=== PATIENT | male | born 1985 | race Caucasian/White ===

== ENCOUNTER 2018-07-10 17:51 | Inpatient (IN) ==
[2018-07-10] MEDS ORDERED: 0.9 % Sodium Chloride 1,000 ML IVC ONE (18:23)
[2018-07-10] MEDS ORDERED: Levofloxacin 750 MG/150 ML 750 MG/150 ML BAG IVPB ONE (18:24)
--- NOTE | 2018-07-10 18:26 | Emergency Department Note ---
Disposition Clinical Impression: Pneumonia, Hypoxemia, Vomiting, Diarrhea Disposition: Admitted As Inpatient Referrals: Rupali Zamorano DO [Primary Care Provider] - Forms: ED Satisfaction Letter General Adult HPI - General Chief complaint: ED Shortness of Breath/Dyspnea Stated complaint: SOB Time Seen by Provider: 07/10/18 18:21 Source: patient Limitations: no limitations - History of Present Illness HPI Narrative: 33-year-old male sent in from urgent care with concerns for pneumonia. The patient describes a progressive illness including vomiting and diarrhea over the last several days. He has had increasing shortness of breath and a cough. The patient denies any chest pain like swelling or pain coughing up blood or syncope. He states he has had temperature up to 103. The patient denies any cardiopulmonary disease DVT PE or cancer. He has no history of asthma. The patient has had recurrent vomiting and diarrhea but describes no bloody emesis or stool. He describes an element of abdominal pain. No flank pain urinary symptoms or syncope. There is no history of rash headache convulsion or confusion no trouble moving the arms or legs independently. He is a nonsmoker. He states he usually works in a very cold environment. The patient's oxygen saturations were reportedly 84% at urgent care. Pain Scale: 10 - Related Data Home Medications Medication Instructions Recorded Confirmed Cholecalciferol (Vitamin D3) 5,000 unit PO HS 03/19/15 03/19/15 [Vitamin D] ClonazePAM [Klonopin] 0.5 mg PO BID 03/19/15 03/19/15 Divalproex (12 HR) [Depakote (12 1,500 mg PO HS 03/19/15 03/19/15 HR)] Ferrous Sulfate 325 mg PO TID 03/19/15 03/19/15 Levocetirizine Dihydrochloride 5 mg PO HS 03/19/15 03/19/15 [Xyzal] Levothyroxine [Synthroid] 75 mcg PO QAM 03/19/15 03/19/15 Quetiapine Fumarate [Seroquel] 200 mg PO HS 03/19/15 03/19/15 Ranitidine HCl [Zantac] 150 mg PO BID 03/19/15 03/19/15 Pantoprazole Sodium 07/10/18 Previous Rx's Medication Instructions Recorded L. Rhamnosus GG/Inulin [Culturelle 1 each PO BID 3 Days #6 cap.sprink 11/23/17 Capsule] Cetirizine HCl [Zyrtec] 10 mg PO DAILY #4 capsule 04/27/18 Albuterol Sulfate [Albuterol 2 puff IH Q4HR #1 hfa.aer.ad 07/10/18 Inhaler] Doxycycline Hyclate 100 mg PO BID 7 Days #14 tablet 07/10/18 GuaiFENesin/Dextromethorphan 1 each PO BID PRN 10 Days #20 tab 07/10/18 [Mucinex Dm ER 1,200-60 mg Tab] Ondansetron HCl [Zofran] 4 mg PO Q8HR PRN 5 Days #15 tab 07/10/18 Allergies Allergy/AdvReac Type Severity Reaction Status Date / Time fluphenazine [From Prolixin] Allergy Anaphylaxis Verified 04/27/18 20:03 perphenazine Allergy See Verified 07/10/18 16:26 Comments All systems ED: reviewed and negative except as stated. Past Medical History - Past Medical History Medical history: Reports: thyroid disease Surgical history: Reports: other Psychiatric history: Reports: anxiety, bipolar, depression - Social History Smoking Status: Never smoker Smokeless Tobacco Status: No Alcohol use: Reports: none Drug use: Reports: none Physical Exam - General Limitations: no limitations General appearance: alert, in no apparent distress - Head Head exam: atraumatic, normocephalic, normal inspection - Eye Eye exam: Present: normal appearance, PERRL, EOMI - ENT ENT exam: normal exam, normal oropharynx, mucous membranes moist - Neck Neck exam: Present: normal inspection, full ROM, trachea midline - Chest Chest inspection: Present: symmetric chest wall rise - Respiratory Respiratory exam: Present: prolonged expiratory phase. Absent: respiratory distress, wheezes - Cardiovascular Cardiovascular exam: Present: normal rhythm, tachycardia - Abdominal Exam Abdominal exam: Present: soft, Non-Tender, normal bowel sounds. Absent: tenderness, distention, guarding, rebound, rigidity - Extremities Exam Extremities exam: Present: normal inspection, full ROM, normal capillary refill. Absent: tenderness, pedal edema, joint swelling, calf tenderness - Expanded Lower Extremity Exam Lower leg exam: Absent: Homans' sign - Back Exam Back exam: Present: normal inspection, full ROM. Absent: tenderness, CVA tenderness (R), CVA tenderness (L), vertebral tenderness - Neurological Exam Neurological exam: Present: alert, oriented X3, CN II-XII intact. Absent: motor sensory deficit - Psychiatric Psychiatric exam: Present: normal affect, normal mood - Skin Skin exam: Present: warm, dry, intact, normal color Course Vital Signs Temperature 98.3 F 07/10/18 17:55 Pulse Rate 102 07/10/18 17:55 Respiratory Rate 18 07/10/18 17:55 Blood Pressure 123/85 07/10/18 17:55 O2 Sat by Pulse Oximetry 89 07/10/18 17:55 Temperature 98.3 F 07/10/18 18:04 Pulse Rate 91 07/10/18 19:15 Respiratory Rate 22 07/10/18 19:15 Blood Pressure 118/73 07/10/18 19:15 O2 Sat by Pulse Oximetry 92 07/10/18 19:15 Oxygen Delivery Oxygen Delivery Oximizer Medical Decision Making - MDM Narrative Medical decision making narrative: The patient's been hypoxic at 84%, he has no history of COPD or asthma. Chest x-ray demonstrates left lower lobe pneumonia. DuoNeb and Solu-Medrol and Levaquin were given. IV fluids were given. Lactic acid negative white count negative. Given the patient's significant hypoxemic and has an apparent lung infection, and possible sepsis, I thought it would be appropriate to admit the patient hospital. I discussed case with the hospitalist on-call who has accepted the patient to their care. The patient's highly agreeable and currently with in the emergency department stable resting on oxygen. Influenza testing is pending. - Lab Data Lab results reviewed: Yes I reviewed the patient's lab results. Result diagrams: 07/10/18 18:37 07/10/18 18:37 Lab Results 07/10/18 07/10/18 07/10/18 Range/Units 18:37 18:37 18:37 WBC 10.1 (4.3-11.1) K/mcL RBC 4.52 (4.19-5.50) M/mcL Hgb 12.6 L (12.9-16.9) g/dL Hct 39.0 (37.5-50.1) % MCV 86.3 (83.0-100.0) fL MCH 27.9 L (28.0-33.3) pg MCHC 32.3 (31.6-35.5) g/dL RDW 14.8 H (11.5-14.5) % Plt Count 198 (140-400) K/mcL MPV 10.2 (9.4-12.4) fL Immature Gran % 0.6 (0-4) % Seg Neutrophils % 81.5 % Lymphocytes % 10.8 % Monocytes % 6.9 % Eosinophils % 0.0 % Basophils % 0.2 % Neutrophils # 8.3 (1.6-8.9) K/mcL Lymphocytes # 1.1 (0.6-4.6) K/mcL Monocytes # 0.7 (0.0-1.3) K/mcL Eosinophils # 0.0 (0.0-0.6) K/mcL Basophils # 0.0 (0.0-0.2) K/mcL PT 13.8 H (9.4-12.1) Seconds INR 1.2 APTT 32.3 (26.0-36.0) Seconds Sodium 132 L (136-145) mEq/L Potassium 3.6 (3.5-5.1) mEq/L Chloride 94 L (98-107) mEq/L Carbon Dioxide 24 (23-29) mEq/L BUN 14 (6-20) mg/dL Creatinine 0.80 (0.70-1.30) mg/dL Est GFR ( Amer) > 60 (> 60) Est GFR (Non-Af Amer) > 60 (> 60) BUN/Creatinine Ratio 18 (6-26) Glucose 161 H (70-105) mg/dL Calculated Osmolality 278 L (280-300) Lactic Acid (0.5-2.2) mmol/L Calcium 8.8 (8.6-10.3) mg/dL Phosphorus 3.1 (2.7-4.5) mg/dL Magnesium 1.9 (1.6-2.6) mg/dL Total Bilirubin 0.4 (0.3-1.0) mg/dL Direct Bilirubin 0.1 (0.0-0.2) mg/dL Indirect Bilirubin 0.3 (0.0-1.2) mg/dL AST 21 (13-39) Units/L ALT 22 (7-52) Units/L Alkaline Phosphatase 60 (34-104) Units/L Troponin I < 0.03 (< 0.04) ng/mL Serum Total Protein 7.0 (6.4-8.9) g/dL Albumin 3.7 (3.5-5.7) g/dL Globulin 3.3 (2.4-3.5) g/dL Albumin/Globulin Ratio 1.1 (1.1-2.2) Urine Color (Yellow) Urine Clarity (Clear) Urine pH (5.0-8.0) pH Units Ur Specific [place] (1.010-1.025) Urine Protein (Neg-Trace) mg/dL Urine Glucose (UA) (Normal) mg/dL Urine Ketones (Negative) mg/dL Urine Blood (Negative) Urine Nitrite (Negative) Urine Bilirubin (Negative) Urine Urobilinogen (Normal) mg/dL Ur Leukocyte Esterase (Negative) Urine Microscopic RBC (0-3) per hpf Urine Microscopic WBC (0-3) per hpf Ur Squamous Epith Cells (None-Few) per lpf Urine Bacteria (None-Few) per hpf Hyaline Casts (None-Few) per lpf Ur Culture Indicated? (NO) Valproic Acid (50-100) mcg/mL 07/10/18 07/10/18 07/10/18 Range/Units 18:37 18:37 19:21 WBC (4.3-11.1) K/mcL RBC (4.19-5.50) M/mcL Hgb (12.9-16.9) g/dL Hct (37.5-50.1) % MCV (83.0-100.0) fL MCH (28.0-33.3) pg MCHC (31.6-35.5) g/dL RDW (11.5-14.5) % Plt Count (140-400) K/mcL MPV (9.4-12.4) fL Immature Gran % (0-4) % Seg Neutrophils % % Lymphocytes % % Monocytes % % Eosinophils % % Basophils % % Neutrophils # (1.6-8.9) K/mcL Lymphocytes # (0.6-4.6) K/mcL Monocytes # (0.0-1.3) K/mcL Eosinophils # (0.0-0.6) K/mcL Basophils # (0.0-0.2) K/mcL PT (9.4-12.1) Seconds INR APTT (26.0-36.0) Seconds Sodium (136-145) mEq/L Potassium (3.5-5.1) mEq/L Chloride (98-107) mEq/L Carbon Dioxide (23-29) mEq/L BUN (6-20) mg/dL Creatinine (0.70-1.30) mg/dL Est GFR ( Amer) (> 60) Est GFR (Non-Af Amer) (> 60) BUN/Creatinine Ratio (6-26) Glucose (70-105) mg/dL Calculated Osmolality (280-300) Lactic Acid 0.7 (0.5-2.2) mmol/L Calcium (8.6-10.3) mg/dL Phosphorus (2.7-4.5) mg/dL Magnesium (1.6-2.6) mg/dL Total Bilirubin (0.3-1.0) mg/dL Direct Bilirubin (0.0-0.2) mg/dL Indirect Bilirubin (0.0-1.2) mg/dL AST (13-39) Units/L ALT (7-52) Units/L Alkaline Phosphatase (34-104) Units/L Troponin I (< 0.04) ng/mL Serum Total Protein (6.4-8.9) g/dL Albumin (3.5-5.7) g/dL Globulin (2.4-3.5) g/dL Albumin/Globulin Ratio (1.1-2.2) Urine Color Dark Yellow (Yellow) Urine Clarity Clear (Clear) Urine pH 6.0 (5.0-8.0) pH Units Ur Specific [place] 1.019 (1.010-1.025) Urine Protein Trace (Neg-Trace) mg/dL Urine Glucose (UA) Normal (Normal) mg/dL Urine Ketones Trace H (Negative) mg/dL Urine Blood Negative (Negative) Urine Nitrite Negative (Negative) Urine Bilirubin Small H (Negative) Urine Urobilinogen Normal (Normal) mg/dL Ur Leukocyte Esterase Negative (Negative) Urine Microscopic RBC 3-5 H (0-3) per hpf Urine Microscopic WBC 5-15 H (0-3) per hpf Ur Squamous Epith Cells Many H (None-Few) per lpf Urine Bacteria None Seen (None-Few) per hpf Hyaline Casts None Seen (None-Few) per lpf Ur Culture Indicated? NO (NO) Valproic Acid 44 L (50-100) mcg/mL - Radiology Data Radiology results reviewed: Yes I reviewed the patient's radiology results.
[2018-07-10] MEDS ORDERED: methylPREDNISolone 125 MG/2 ML VIAL IVP ONE (18:47)
[2018-07-10] MEDS ORDERED: Ipratropium/Albuterol Neb 3 ML IH ONE (18:47)
[2018-07-10 18:50] LABS: Basophils % 0.2 %; Hemoglobin 12.6 g/dL (12.9-16.9); Immature Granulocytes % 0.6 % (0-4); Lymphocytes # 1.1 K/mcL (0.6-4.6); Lymphocytes % 10.8 %; Mean Corpuscular HGB Conc 32.3 g/dL (31.6-35.5); Mean Corpuscular Hemoglobin 27.9 pg (28.0-33.3); Mean Corpuscular Volume 86.3 fL (83.0-100.0); Mean Platelet Volume 10.2 fL (9.4-12.4); Monocytes # 0.7 K/mcL (0.0-1.3); Monocytes % 6.9 %; Neutrophils # 8.3 K/mcL (1.6-8.9); Platelet Count 198 K/mcL (140-400); Red Blood Count 4.52 M/mcL (4.19-5.50); Red Cell Distribution Width 14.8 % (11.5-14.5); Segmented Neutrophils % 81.5 %
[2018-07-10 18:57] LABS: INR 1.2; Prothrombin Time 13.8 Seconds (9.4-12.1)
[2018-07-10 18:59] LABS: Activated Partial Thrombo Time 32.3 Seconds (26.0-36.0)
[2018-07-10 19:11] LABS: Troponin I < 0.03 ng/mL (< 0.04)
[2018-07-10 19:22] LABS: Alanine Aminotransferase 22 Units/L (7-52); Albumin 3.7 g/dL (3.5-5.7); Albumin/Globulin Ratio 1.1 (1.1-2.2); Alkaline Phosphatase 60 Units/L (34-104); Aspartate Amino Transferase 21 Units/L (13-39); BUN/Creatinine Ratio 18 (6-26); Bilirubin,Direct 0.1 mg/dL (0.0-0.2); Bilirubin,Indirect 0.3 mg/dL (0.0-1.2); Bilirubin,Total 0.4 mg/dL (0.3-1.0); Blood Urea Nitrogen 14 mg/dL (6-20); Calcium 8.8 mg/dL (8.6-10.3); Carbon Dioxide 24 mEq/L (23-29); Chloride 94 mEq/L (98-107); Globulin 3.3 g/dL (2.4-3.5); Glucose 161 mg/dL (70-105); Magnesium 1.9 mg/dL (1.6-2.6); Osmolality,Calculated 278 (280-300); Phosphorous 3.1 mg/dL (2.7-4.5); Potassium 3.6 mEq/L (3.5-5.1); Sodium 132 mEq/L (136-145); eGFR For Non-African Americans > 60 (> 60)
[2018-07-10 19:29] LABS: Bilirubin,Urine Small (Negative); Blood,Urine Negative (Negative); Clarity,Urine Clear (Clear); Color,Urine Dark Yellow (Yellow); Glucose,Urine (UA) Normal (Normal); Ketones,Urine Trace mg/dL (Negative); Leukocyte Esterase,Urine Negative (Negative); Nitrite,Urine Negative (Negative); Protein,Urine Trace mg/dL (Neg-Trace); Specific Gravity,Urine 1.019 (1.010-1.025); Urobilinogen,Urine Normal (Normal)
[2018-07-10 19:32] LABS: Bacteria,Urine None Seen per hpf (None-Few); Hyaline Casts,Urine None Seen per lpf (None-Few); Squamous Epithelial Cell,Urine Many per lpf (None-Few)
[2018-07-11] MEDS ORDERED: Ondansetron 4 MG/2 ML VIAL IVP PRN (01:59)
[2018-07-11] MEDS ORDERED: Naloxone 0.4 MG/ML INJ IVP PRN (01:59)
[2018-07-11] MEDS ORDERED: Ipratropium/Albuterol Neb 3 ML IH PRN (02:14)
[2018-07-11] MEDS: clonazePAM 0.5 MG TABLET PO SCH ×3 (02:34→21:50)
[2018-07-11] MEDS: Divalproex (24 HR) 500 MG TABLET PO SCH ×2 (02:34→21:51)
[2018-07-11] MEDS: GuaiFENesin/Dextromethorphan TABLET PO SCH ×3 (02:34→21:50)
[2018-07-11 05:49] LABS: Hematocrit 37.8 % (37.5-50.1); Mean Corpuscular HGB Conc 31.7 g/dL (31.6-35.5); Mean Corpuscular Hemoglobin 27.5 pg (28.0-33.3); Mean Corpuscular Volume 86.7 fL (83.0-100.0); Mean Platelet Volume 10.8 fL (9.4-12.4); Platelet Count 196 K/mcL (140-400); Red Blood Count 4.36 M/mcL (4.19-5.50); Red Cell Distribution Width 14.8 % (11.5-14.5)
[2018-07-11 06:02] LABS: BUN/Creatinine Ratio 25 (6-26); Blood Urea Nitrogen 16 mg/dL (6-20); Calcium 8.6 mg/dL (8.6-10.3); Carbon Dioxide 26 mEq/L (23-29); Chloride 95 mEq/L (98-107); Glucose 260 mg/dL (70-105); Osmolality,Calculated 286 (280-300); Potassium 3.7 mEq/L (3.5-5.1); Sodium 133 mEq/L (136-145); eGFR For Non-African Americans > 60 (> 60)
--- NOTE | 2018-07-11 06:33 | Internal Med History&Physical ---
Date of Encounter: 07/11/18 Time of Encounter: 01:35 Internal Medicine - H&P: HPI Chief complaint: Pneumonia Admitted From: Emergency Dept Plans for Post Hospital Care: Home History of present illness: Mr. Duncan is a 33 year old male Patient presented to the emergency room with a two-week history of nausea, vomiting, diarrhea and cough. He is also had increasing shortness of breath as well. He says that over the last 2 weeks been getting worse but that improved about a week ago. However about 3 days ago while he was at work he had increased wheezing and shortness of breath and it felt like his lungs were on f katherine. He did not call for medical assistance at that time and instead he went home and scheduled an appointment with his primary care provider. Prior to his appointment on Tuesday however he had an episode of diarrhea prompting him to go to the urgent care for evaluation. A chest x-ray performed at the urgent care revealed a pneumonia and he was sent to the hospital for further management. In the emergency room patient's CBC showed a white count of 10.1. BMP was within normal limits. Chest x-ray showed left lower lobe pneumonia. Urinalysis was negative for infection. Patient's initial vitals did however show hypoxia with a room air saturation of 89 correcting to 92 with 3 L of oxygen. Patient does not use oxygen at home. He had no measurable fever in the emergency room but had tachycardia and increased respiratory rate. Lactic acid level was 0.7. Blood cultures were drawn and patient was started on Levaquin. He was admitted to the hospital for further management. Upon my evaluation, patient is resting comfortably in the hospital bed. His mother is at bedside. He states that he has not felt well for the last 2 weeks, and has noticed increased wheezing with his breathing the last few days. He was given breathing treatments in the emergency room and he states that these did help his symptoms. He does not smoke. 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 He denies sick contacts. Though he has had some nausea and vomiting the last few days he has not had any since coming to the emergency room. He denies chest pain and abdominal pain. He is also not had any diarrhea since Tuesday. Past Med Surg Social Fam HX - Past Medical History Medical history: diabetes, thyroid disease Additional medical history: pre-diabetic Psychiatric history: anxiety, bipolar, depression - Past Surgical History Surgical History: other Additional surgical history: TONSILLECTOMY - Social History Smoking Status: Never smoker Smokeless Tobacco Status: No Alcohol use: none Drug use: none - Family History Father Living Status: Cause of : PNUEMONIA Hx Family Cancer: Yes (KIDNEY) Mother Living Status: Still Living Hx Family Cardiac Disorders: Yes (HTN HLD) Internal Medicine - H&P: Meds Cholecalciferol (Vitamin D3) [Vitamin D] 2,000 unit PO DAILY 07/10/18 [History] Cyanocobalamin (Vitamin B-12) [Vitamin B12] 1,000 mcg PO Q2W 07/10/18 [History] Divalproex (24 HR) [Depakote ER (24 HR)] 1,500 mg PO HS 07/10/18 [History] Ferrous Sulfate [Iron] 325 mg PO BID 07/10/18 [History] GuaiFENesin/Dextromethorphan [Mucinex DM] 2 tab PO BID 07/10/18 [History] Levothyroxine Sodium 100 mcg PO QAM 07/10/18 [History] Loperamide [Imodium] 2 mg PO BID PRN 07/10/18 [History] Pantoprazole Sodium 40 mg PO DAILY 07/10/18 [History] clonazePAM [Clonazepam] 0.5 mg PO BID 07/10/18 [History] Allergy/AdvReac Type Severity Reaction Status Date / Time fluphenazine [From Prolixin] Allergy Anaphylaxis Verified 04/27/18 20:03 perphenazine Allergy See Verified 07/10/18 16:26 Comments All Systems PM: A 10-system review of systems was performed and is negative for pertinent findings except as documented above in the HPI. - Constitutional Vitals: Temp Pulse Resp BP Pulse Ox 98.8 F 79 16 97/61 91 07/11/18 02:51 07/11/18 02:51 07/11/18 02:51 07/11/18 02:51 07/11/18 02:51 General appearance: Present: cooperative, A&O X 3, pleasant, no acute distress, answers questions appropriately Exam: - - Head Head exam: Present: normal inspection - Eye Eye exam: Present: EOMI, normal appearance - Neck Neck exam general surgery: Absent: tenderness - Respiratory Respiratory exam: Present: rales, wheezes. Absent: accessory muscle use, chest wall tenderness, decreased breath sounds, CTAB, respiratory distress, rhonchi - Cardiovascular Cardiovascular exam: Present: RRR. Absent: diastolic murmur, systolic murmur - GI/Abdominal GI/Abdominal exam: Present: normal bowel sounds, soft. Absent: tenderness - Extremities Exam Extremities exam: Present: warm, radial pulses palpable and symmetrical. Absent: calf tenderness, pedal edema, tenderness - Neurological Exam Neurological exam: Present: no focal deficits, strengths equal and symetr throughout. Absent: motor sensory deficit, facial droop, speech deficit - Skin Skin exam: Present: dry, normal color, warm Internal Med - H&P Results - Labs CBC & Chem 7: 07/11/18 05:07 07/11/18 05:07 Labs: Short CBC 07/10/18 07/11/18 Range/Units 18:37 05:07 WBC 10.1 8.3 (4.3-11.1) K/mcL Hgb 12.6 L 12.0 L (12.9-16.9) g/dL Hct 39.0 37.8 (37.5-50.1) % Plt Count 198 196 (140-400) K/mcL Neutrophils # 8.3 (1.6-8.9) K/mcL BMP 07/10/18 07/11/18 18:37 05:07 Sodium 132 L 133 L Potassium 3.6 3.7 Chloride 94 L 95 L Carbon Dioxide 24 26 BUN 14 16 Creatinine 0.80 0.64 L Glucose 161 H 260 H Calcium 8.8 8.6 Cardiac Enzymes 07/10/18 Range/Units 18:37 Troponin I < 0.03 (< 0.04) ng/mL Liver Function 07/10/18 Range/Units 18:37 Total Bilirubin 0.4 (0.3-1.0) mg/dL Direct Bilirubin 0.1 (0.0-0.2) mg/dL AST 21 (13-39) Units/L ALT 22 (7-52) Units/L Alkaline Phosphatase 60 (34-104) Units/L Albumin 3.7 (3.5-5.7) g/dL Urine 07/10/18 Range/Units 19:21 Urine Color Dark Yellow (Yellow) Urine Clarity Clear (Clear) Urine pH 6.0 (5.0-8.0) pH Units Ur Specific [place] 1.019 (1.010-1.025) Urine Protein Trace (Neg-Trace) mg/dL Urine Glucose (UA) Normal (Normal) mg/dL - Assessment and plan (1) Pneumonia Current Visit: Yes Status: Acute Assessment and plan: As evidenced by patient's chest x-ray which revealed left lower lobe pneumonia. He has had symptoms of shortness of breath and cough for about 2 weeks. Blood cultures are drawn emergency room, and he was started on Levaquin. Continue antibiotics Follow-up blood cultures when available Ordered respiratory panel, follow-up results Qualifiers: Pneumonia type: due to unspecified organism Laterality: left Lung location: lower lobe of lung Qualified Code(s): J18.1 - Lobar pneumonia, unspecified organism (2) Hypoxemia Current Visit: Yes Status: Acute Assessment and plan: Improved on oxygen, patient now able to sustain saturations greater than 90% on room air. Likely secondary to pneumonia Continue oxygen supplementation as needed. Continue breathing treatments (3) Nausea vomiting and diarrhea Current Visit: No Status: Acute Assessment and plan: likely secondary to pneumonia, no episodes since arrival. Supportive care (4) DVT prophylaxis Current Visit: No Status: Acute Assessment and plan: SCDs - Time Spent With Patient Total time spent is greater than 50% in coordination of care (as documented) at patient's floor/unit and/or counseling patient: Greater than 35 minutes
--- NOTE | 2018-07-11 09:44 | Event Note ---
Date of Encounter: 07/11/18 Time of Encounter: 09:44 Patient was seen by hospitalist services earlier this am- Patient was examined at bedside- currently has expiratory wheezes and requires high flow oxygen to maintain O2 sats> 92%- Normally he does not wear oxygen- he does admit to sick contacts and did not receive flu vaccine- we will check rep panel and add steroid. We will check blood glucose and SSI. I discussed treatemtn plan with patient and mother who is at bedside. Due to acute resp failure with hypoxia requiring oxygen support patient requires close medically monitoring and will be changed to inpatient status
[2018-07-11 10:56] LABS: Adenovirus Not Detected (Not Detect); Bordetella Pertussis Not Detected (Not Detect); Chlamydophila pneumoniae Not Detected (Not Detect); Coronavirus 229E Not Detected (Not Detect); Coronavirus HKU1 Not Detected (Not Detect); Coronavirus NL63 Not Detected (Not Detect); Coronavirus OC43 Not Detected (Not Detect); Human Metapneumovirus Not Detected (Not Detect); Human Rhinovirus/Enterovirus Not Detected (Not Detect); Influenza A Subtype 2009 H1 Not Detected (Not Detect); Influenza A Untypeable Not Detected (Not Detect); Influenza B Not Detected (Not Detect); Mycoplasma pneumoniae Not Detected (Not Detect); Parainfluenza Virus 1 Not Detected (Not Detect); Parainfluenza Virus 2 Not Detected (Not Detect); Parainfluenza Virus 3 Not Detected (Not Detect); Parainfluenza Virus 4 Not Detected (Not Detect); Respiratory Syncytial Virus Not Detected (Not Detect)
[2018-07-11] MEDS: Ipratropium/Albuterol Neb 3 ML IH SCH ×4 (11:01→23:21)
[2018-07-11] MEDS ORDERED: D5% in Water 1,000 ML IVC PRN (12:27)
[2018-07-11] MEDS ORDERED: *HR* Dextrose 50 % in Water (Syg) 50 ML SYRINGE IVP PRN (12:27)
[2018-07-11] MEDS ORDERED: Dextrose Gel 15 GM/37.5 ML TUBE PO PRN ×2 (12:27)
[2018-07-11] MEDS: predniSONE 20 MG TABLET PO SCH (12:55)
[2018-07-11] MEDS: 0.9 % Sodium Chloride 1,000 ML IVC SCH (13:00)
[2018-07-11] MEDS: Insulin LISPRO 300 UNITS/3 ML VIAL SQ SCH ×2 (17:12→21:57)
--- NOTE | 2018-07-11 17:50 | Electrocardiograph Report ---
[address] [place], [place] [address] Test Date: 2018-07-10 Pat Name: Stephan Duncan Department: [id number] Room: 3B Gender: M Utilization Reviewer: : 1985 Requested By: Shawn Jo Order Number: [id number] Reading MD: Darling Shipley Measurements Intervals Harvey Rate: 92 P: 60 ME: 153 QRS: 59 QRSD: 96 T: 52 QT: 369 QTc: 457 Interpretive Statements Sinus rhythm Electronically Signed On 07-11-2018 17:48:26 EST by Darling Shipley
[2018-07-11] MEDS: Levofloxacin 750 MG/150 ML 750 MG/150 ML BAG IVPB SCH (18:36)
[2018-07-12] MEDS: Ipratropium/Albuterol Neb 3 ML IH SCH ×6 (04:25→23:08)
[2018-07-12 05:13] LABS: Basophils % 0.2 %; Hematocrit 36.1 % (37.5-50.1); Hemoglobin 11.6 g/dL (12.9-16.9); Immature Granulocytes % 0.6 % (0-4); Lymphocytes # 2.5 K/mcL (0.6-4.6); Lymphocytes % 29.2 %; Mean Corpuscular HGB Conc 32.1 g/dL (31.6-35.5); Mean Platelet Volume 10.6 fL (9.4-12.4); Monocytes # 0.6 K/mcL (0.0-1.3); Monocytes % 6.7 %; Neutrophils # 5.3 K/mcL (1.6-8.9); Platelet Count 202 K/mcL (140-400); Red Blood Count 4.15 M/mcL (4.19-5.50); Red Cell Distribution Width 14.9 % (11.5-14.5); Segmented Neutrophils % 63.3 %
[2018-07-12 05:31] LABS: BUN/Creatinine Ratio 25 (6-26); Blood Urea Nitrogen 16 mg/dL (6-20); Calcium 8.5 mg/dL (8.6-10.3); Carbon Dioxide 31 mEq/L (23-29); Chloride 99 mEq/L (98-107); Glucose 140 mg/dL (70-105); Osmolality,Calculated 289 (280-300); Potassium 3.7 mEq/L (3.5-5.1); Sodium 138 mEq/L (136-145); eGFR For Non-African Americans > 60 (> 60)
[2018-07-12] MEDS: 0.9 % Sodium Chloride 1,000 ML IVC SCH (06:12)
[2018-07-12] MEDS: Insulin LISPRO 300 UNITS/3 ML VIAL SQ SCH ×4 (09:13→20:11)
[2018-07-12] MEDS: GuaiFENesin/Dextromethorphan TABLET PO SCH ×2 (09:21→20:11)
[2018-07-12] MEDS: clonazePAM 0.5 MG TABLET PO SCH ×2 (09:21→20:11)
[2018-07-12] MEDS: predniSONE 20 MG TABLET PO SCH (09:21)
--- NOTE | 2018-07-12 10:18 | Internal Med Progress Note ---
Hospitalist Progress Note - Encounter Date of Encounter: 07/12/18 Time of Encounter: 10:13 - Subjective Interval History: Yan seen and examined at bedside currently does not appear to be in any resp distress- encouraged patient to ambulate and to use IS - Exam Vitals: Temp Pulse Resp BP Pulse Ox 97.3 F L 67 16 92/65 93 07/12/18 07:00 07/12/18 07:00 07/12/18 07:00 07/12/18 07:06 07/12/18 07:00 Exam: General appearance: Present: A&O X 3 Exam: PHYSICAL EXAMINATION: GENERAL: NAD, AO 3 HEENT: Head is normocephalic and atraumatic. EOMI, PERRLA NECK: Supple. No carotid bruits. No lymphadenopathy or thyromegaly. Stoma LUNGS: Clear to auscultation B/L AP and L. HEART: Regular rate and regular rhythm, S1, S2 without murmur. ABDOMEN: Soft and nondistended. Positive bowel sounds. No hepatosplenomegaly was noted. Epigastric tenderness EXTREMITIES: Without any cyanosis, clubbing, rash, lesions or edema. NEUROLOGIC: Cranial nerves II through XII are grossly intact. PSYCHIATRIC: Appropriate affect, denies SI/HI, without agitation or anxiety SKIN: No ulceration or induration present. - Assessment and Plan (1) Acute respiratory failure with hypoxia Current Visit: Yes Status: Acute Assessment and Plan: secondary to pneumonia- cont with O2 titrate to maintains sats >92% encourage ambulation (2) Pneumonia Current Visit: Yes Status: Acute Assessment and Plan: 1 CXR - left lower lobe pneumonia-symptoms of shortness of breath and cough for about 2 weeks. Blood cultures neg to date , cont levaquin Influenza neg sputum culture pending cont with O2 tirate to maintain spo2 > 92% steroid burst for wheezing IS bronchodilators as needed (3) DVT prophylaxis Current Visit: No Status: Acute Assessment and Plan: Heparin subcutaneous (4) Morbid obesity with BMI of 45.0-49.9, adult Current Visit: No Status: Chronic Assessment and Plan: encourage lifestyle changes (5) JOHANNA (obstructive sleep apnea) Current Visit: No Status: Chronic Assessment and Plan: 1 patient states that he has hx of ODSA however does not use CPAP- offered CPAP however declined (6) Diabetes mellitus Current Visit: Yes Status: Acute Assessment and Plan: 1 Not on insulin - diet controlled - will place on Accucheck AC/HS with SSI dt steroid use diabetic diet - Time Spent with Patient Total time spent is greater than 50% in coordination of care (as documented) at patient's floor/unit and/or counseling patient: Internal Medicine: Result - Labs CBC & Chem 7: 07/12/18 04:43 07/12/18 04:43 Labs: Short CBC 07/12/18 Range/Units 04:43 WBC 8.5 (4.3-11.1) K/mcL Hgb 11.6 L (12.9-16.9) g/dL Hct 36.1 L (37.5-50.1) % Plt Count 202 (140-400) K/mcL Neutrophils # 5.3 (1.6-8.9) K/mcL BMP 07/12/18 04:43 Sodium 138 Potassium 3.7 Chloride 99 Carbon Dioxide 31 H BUN 16 Creatinine 0.63 L Glucose 140 H Calcium 8.5 L - ABG Interpretation ABG results: PT/INR, D-dimer PT 13.8 Seconds (9.4-12.1) H 07/10/18 18:37 Consult Discharge Plan - Plan Referrals: Poornima Lagos, PARKING MANAGER [Partnered Physician] - 07/20/18 2:00 pm (2) Pneumonia Qualifiers: Pneumonia type: due to unspecified organism Laterality: left Lung location: lower lobe of lung Qualified Code(s): J18.1 - Lobar pneumonia, unspecified organism (6) Diabetes mellitus Qualifiers: Diabetes mellitus type: type 2 Diabetes mellitus manager intermediate insulin use: without skilled nursing use Diabetes mellitus complication status: without complication Qualified Code(s): E11.9 - Type 2 diabetes mellitus without complications
[2018-07-12] MEDS: Levofloxacin 750 MG/150 ML 750 MG/150 ML BAG IVPB SCH (20:10)
[2018-07-12] MEDS: Divalproex (24 HR) 500 MG TABLET PO SCH (20:11)
[2018-07-12] MEDS: *HR* Heparin 5,000 UNIT/ML VIAL SQ SCH (20:11)
[2018-07-12] MEDS: Famotidine 20 MG TABLET PO SCH (20:11)
[2018-07-13] MEDS: Ipratropium/Albuterol Neb 3 ML IH SCH ×6 (03:35→23:59)
[2018-07-13 04:11] LABS: Basophils % 0.4 %; Hematocrit 38.1 % (37.5-50.1); Hemoglobin 12.4 g/dL (12.9-16.9); Lymphocytes # 3.4 K/mcL (0.6-4.6); Lymphocytes % 45.9 %; Mean Corpuscular HGB Conc 32.5 g/dL (31.6-35.5); Mean Corpuscular Hemoglobin 28.1 pg (28.0-33.3); Mean Corpuscular Volume 86.4 fL (83.0-100.0); Mean Platelet Volume 10.7 fL (9.4-12.4); Monocytes # 0.4 K/mcL (0.0-1.3); Monocytes % 5.6 %; Neutrophils # 3.5 K/mcL (1.6-8.9); Platelet Count 209 K/mcL (140-400); Red Blood Count 4.41 M/mcL (4.19-5.50); Red Cell Distribution Width 15.2 % (11.5-14.5); Segmented Neutrophils % 47.1 %
[2018-07-13 04:28] LABS: BUN/Creatinine Ratio 21 (6-26); Blood Urea Nitrogen 14 mg/dL (6-20); Calcium 8.7 mg/dL (8.6-10.3); Carbon Dioxide 32 mEq/L (23-29); Chloride 99 mEq/L (98-107); Glucose 99 mg/dL (70-105); Osmolality,Calculated 291 (280-300); Potassium 3.6 mEq/L (3.5-5.1); Sodium 140 mEq/L (136-145); eGFR For Non-African Americans > 60 (> 60)
[2018-07-13] MEDS: *HR* Heparin 5,000 UNIT/ML VIAL SQ SCH ×2 (06:10→17:43)
[2018-07-13] MEDS: Insulin LISPRO 300 UNITS/3 ML VIAL SQ SCH ×4 (08:37→21:26)
[2018-07-13] MEDS: predniSONE 20 MG TABLET PO SCH (08:39)
[2018-07-13] MEDS: clonazePAM 0.5 MG TABLET PO SCH ×2 (08:39→20:03)
[2018-07-13] MEDS: Famotidine 20 MG TABLET PO SCH ×2 (08:39→20:03)
[2018-07-13] MEDS: GuaiFENesin/Dextromethorphan TABLET PO SCH ×2 (08:39→20:02)
--- NOTE | 2018-07-13 10:31 | Internal Med Progress Note ---
Hospitalist Progress Note - Encounter Date of Encounter: 07/14/18 Time of Encounter: 10:31 - Subjective Interval History: Patseb seen and examined at bedside currently does not appear to be in any resp distress- encouraged patient to ambulate and to use IS - Exam Vitals: Temp Pulse Resp BP Pulse Ox 98.7 F 70 16 107/72 94 07/13/18 07:09 07/13/18 07:09 07/13/18 07:37 07/13/18 07:09 07/13/18 08:44 Exam: General appearance: Present: A&O X 3 Exam: PHYSICAL EXAMINATION: GENERAL: NAD, AO 3 HEENT: Head is normocephalic and atraumatic. EOMI, PERRLA NECK: Supple. No carotid bruits. No lymphadenopathy or thyromegaly. Stoma LUNGS: Clear to auscultation B/L AP and L. HEART: Regular rate and regular rhythm, S1, S2 without murmur. ABDOMEN: Soft and nondistended. Positive bowel sounds. No hepatosplenomegaly was noted. Epigastric tenderness EXTREMITIES: Without any cyanosis, clubbing, rash, lesions or edema. NEUROLOGIC: Cranial nerves II through XII are grossly intact. PSYCHIATRIC: Appropriate affect, denies SI/HI, without agitation or anxiety SKIN: No ulceration or induration present. - Assessment and Plan (1) Acute respiratory failure with hypoxia Current Visit: Yes Status: Acute Assessment and Plan: secondary to pneumonia- cont with O2 titrate to maintains sats >92% encourage ambulation 07/13 patient resp status improved -cont to titrate oxygen to room air encourage ambulation (2) Pneumonia Current Visit: Yes Status: Acute Assessment and Plan: 1 CXR - left lower lobe pneumonia-symptoms of shortness of breath and cough for about 2 weeks. Blood cultures neg to date , cont levaquin Influenza neg sputum culture pending cont with O2 tirate to maintain spo2 > 92% steroid burst for wheezing IS bronchodilators as needed 07/13 CXR - left lower lobe pneumonia-symptoms of shortness of breath and cough for about 2 weeks. Blood cultures neg to date , cont levaquin- switch to oral Influenza neg sputum culture neg cont with O2 tirate to maintain spo2 > 92% steroid burst for wheezing IS bronchodilators as needed (3) DVT prophylaxis Current Visit: No Status: Acute Assessment and Plan: Heparin subcutaneous (4) Morbid obesity with BMI of 45.0-49.9, adult Current Visit: No Status: Chronic Assessment and Plan: encourage lifestyle changes (5) JOHANNA (obstructive sleep apnea) Current Visit: No Status: Chronic Assessment and Plan: 1 patient states that he has hx of JOHANNA however does not use CPAP- offered CPAP however declined (6) Diabetes mellitus Current Visit: Yes Status: Acute Assessment and Plan: 1 Not on insulin - diet controlled - will place on Accucheck AC/HS with SSI dt steroid use diabetic diet 07/13 glucose stable -cont with diabetic diet - Time Spent with Patient Total time spent is greater than 50% in coordination of care (as documented) at patient's floor/unit and/or counseling patient: Internal Medicine: Result - Labs CBC & Chem 7: 07/14/18 03:45 07/14/18 03:45 Labs: Short CBC 07/13/18 Range/Units 03:46 WBC 7.4 (4.3-11.1) K/mcL Hgb 12.4 L (12.9-16.9) g/dL Hct 38.1 (37.5-50.1) % Plt Count 209 (140-400) K/mcL Neutrophils # 3.5 (1.6-8.9) K/mcL BMP 07/13/18 03:46 Sodium 140 Potassium 3.6 Chloride 99 Carbon Dioxide 32 H BUN 14 Creatinine 0.68 L Glucose 99 Calcium 8.7 - ABG Interpretation ABG results: PT/INR, D-dimer PT 13.8 Seconds (9.4-12.1) H 07/10/18 18:37 Consult Discharge Plan - Plan Referrals: Poornima Lagos BANDER OPERATOR [Partnered Physician] - 07/20/18 2:00 pm (2) Pneumonia Qualifiers: Pneumonia type: due to unspecified organism Laterality: left Lung location: lower lobe of lung Qualified Code(s): J18.1 - Lobar pneumonia, unspecified organism (6) Diabetes mellitus Qualifiers: Diabetes mellitus type: type 2 Diabetes mellitus skilled nursing insulin use: without resident caregiver use Diabetes mellitus complication status: without complication Qualified Code(s): E11.9 - Type 2 diabetes mellitus without complications
[2018-07-13] MEDS: levoFLOXacin 750 MG TABLET PO SCH (11:00)
[2018-07-13] MEDS: Divalproex (24 HR) 500 MG TABLET PO SCH (20:03)
[2018-07-14 04:30] LABS: BUN/Creatinine Ratio 24 (6-26); Blood Urea Nitrogen 18 mg/dL (6-20); Calcium 8.7 mg/dL (8.6-10.3); Carbon Dioxide 33 mEq/L (23-29); Chloride 97 mEq/L (98-107); Glucose 116 mg/dL (70-105); Osmolality,Calculated 291 (280-300); Potassium 3.6 mEq/L (3.5-5.1); Sodium 139 mEq/L (136-145); eGFR For Non-African Americans > 60 (> 60)
[2018-07-14] MEDS: Ipratropium/Albuterol Neb 3 ML IH SCH ×3 (04:39→11:29)
[2018-07-14] MEDS: *HR* Heparin 5,000 UNIT/ML VIAL SQ SCH (05:28)
[2018-07-14 05:59] LABS: Basophils % 0.3 %; Eosinophils % 0.1 %; Hematocrit 38.8 % (37.5-50.1); Hemoglobin 12.3 g/dL (12.9-16.9); Immature Granulocytes % 2.1 % (0-4); Lymphocytes # 4.1 K/mcL (0.6-4.6); Lymphocytes % 44.8 %; Mean Corpuscular HGB Conc 31.7 g/dL (31.6-35.5); Mean Corpuscular Hemoglobin 27.6 pg (28.0-33.3); Mean Corpuscular Volume 87.2 fL (83.0-100.0); Mean Platelet Volume 11.3 fL (9.4-12.4); Monocytes # 0.5 K/mcL (0.0-1.3); Neutrophils # 4.4 K/mcL (1.6-8.9); Platelet Count 225 K/mcL (140-400); Red Blood Count 4.45 M/mcL (4.19-5.50); Red Cell Distribution Width 15.3 % (11.5-14.5); Segmented Neutrophils % 47.7 %
[2018-07-14] MEDS: Insulin LISPRO 300 UNITS/3 ML VIAL SQ SCH (08:14)
[2018-07-14] MEDS: clonazePAM 0.5 MG TABLET PO SCH (08:16)
[2018-07-14 08:17] VITALS: BP 102/68
[2018-07-14] MEDS: levoFLOXacin 750 MG TABLET PO SCH (10:04)
[2018-07-14] MEDS: GuaiFENesin/Dextromethorphan TABLET PO SCH (10:04)
[2018-07-14] MEDS: predniSONE 20 MG TABLET PO SCH (10:04)
[2018-07-14] MEDS: Famotidine 20 MG TABLET PO SCH (10:04)
--- NOTE | 2018-07-14 12:55 | Discharge Summary ---
- NOTES TO OUTPATIENT PROVIDER Notes to Outpatient Provider: Patient presented with cough and fever dx with pneumonia received steroid burst- on levaquin- will complete 10 day course - albuterol breathing tx - encourage Incentive spirometry - Orders not resulted at time of discharge: Pending orders 07/10/18 18:37 Culture,Blood [BC] Stat Date of Encounter: 07/14/18 Time of Encounter: 12:50 - Discharge Diagnosis (1) Acute respiratory failure with hypoxia Priority: Primary Status: Acute (2) Pneumonia Priority: Secondary Status: Acute Qualifiers: Pneumonia type: due to unspecified organism Laterality: left Lung location: lower lobe of lung Qualified Code(s): J18.1 - Lobar pneumonia, unspecified organism (3) Morbid obesity with BMI of 45.0-49.9, adult Priority: Secondary Status: Chronic (4) JOHANNA (obstructive sleep apnea) Priority: Secondary Status: Chronic (5) Diabetes mellitus Priority: Secondary Status: Acute Qualifiers: Diabetes mellitus type: type 2 Diabetes mellitus terminal worker insulin use: without prison use Diabetes mellitus complication status: without complication Qualified Code(s): E11.9 - Type 2 diabetes mellitus without complications Hospital course: Mr. Duncan is a 33 year old male past medical hx of JOHANNA diabetes thyroid disease bipolar Presented to [facility] ED with 2 week hx of NVD SOB and cough A chest x-ray performed at the urgent care revealed a pneumonia and he was sent to the hospital for further management.Chest x-ray showed left lower lobe pneumonia. Urinalysis was negative for infection. Patient's initial vitals did however show hypoxia with a room air saturation of 89 correcting to 92 with 3 L of oxygen. Patient does not use home oxygen but hx of JOHANAN noncompliant with sleep apnea machine Blood culure were drawn and were negative Sputum culture negative He was given Levaquin steroid burst oxygen and bronchial dilators His resp state slowly improved- Patient had to be greatly encouraged to use IS and to ambulate- he was eventually weaned off oxygen - transitioned to oral ATB which he will cont for 10 day course - 6 min walk test was completed and the patient did not qualify for home O2 - Advised the patient to follow up with PCP He was given a prescription of Levaquin as well as for Duo nebs - He is hemodynamically stable and ready for discharge Discharge discussed with: patient - Time Spent with Patient Total time spent providing and/or coordinating discharge services: - Discharge Medications Prescriptions: Ipratropium/Albuterol Neb [Duoneb] 3 ml IH [id number] #30 inhsol levoFLOXacin [Levaquin] 750 mg PO DAILY #7 tablet Home Medications: Cholecalciferol (Vitamin D3) [Vitamin D3] 2,000 unit PO DAILY 07/10/18 [History] Cyanocobalamin (Vitamin B-12) [Vitamin B12] 1,000 mcg PO Q2W 07/10/18 [History] Divalproex (24 HR) [Depakote ER (24 HR)] 1,500 mg PO HS 07/10/18 [History] Ferrous Sulfate [Iron] 325 mg PO BID 07/10/18 [History] GuaiFENesin/Dextromethorphan [Mucinex Dm] 2 tab PO BID 07/10/18 [History] Levothyroxine Sodium 100 mcg PO QAM 07/10/18 [History] Loperamide [Imodium] 2 mg PO BID PRN 07/10/18 [History] Pantoprazole Sodium 40 mg PO DAILY 07/10/18 [History] clonazePAM [Clonazepam] 0.5 mg PO BID 07/10/18 [History] Ipratropium/Albuterol Neb [Duoneb] 3 ml IH [id number] #30 inhsol 07/14/18 [Rx] levoFLOXacin [Levaquin] 750 mg PO DAILY #7 tablet 07/14/18 [Rx] Allergies/Adverse Reactions: Allergy/AdvReac Type Severity Reaction Status Date / Time fluphenazine [From Prolixin] Allergy Anaphylaxis Verified 04/27/18 20:03 perphenazine Allergy See Verified 07/10/18 16:26 Comments Date of admission: 07/11/18 12:17 Primary care physician: Rupali Zamorano DO Discharging clinician: Yun Bear Anticipated date of discharge: 07/14/18 - Constitutional Vitals: Temp Pulse Resp BP Pulse Ox 97.4 F L 62 18 102/68 92 07/14/18 08:15 07/14/18 08:15 07/14/18 11:30 07/14/18 08:15 07/14/18 11:30 General appearance: Present: cooperative, A&O X 3, pleasant, no acute distress, answers questions appropriately Exam: General appearance: Present: A&O X 3 Exam: PHYSICAL EXAMINATION: GENERAL: NAD, AO 3 HEENT: Head is normocephalic and atraumatic. EOMI, PERRLA NECK: Supple. No carotid bruits. No lymphadenopathy or thyromegaly. Stoma LUNGS: Clear to auscultation B/L AP and L. HEART: Regular rate and regular rhythm, S1, S2 without murmur. ABDOMEN: Soft and nondistended. Positive bowel sounds. No hepatosplenomegaly was noted. Epigastric tenderness EXTREMITIES: Without any cyanosis, clubbing, rash, lesions or edema. NEUROLOGIC: Cranial nerves II through XII are grossly intact. PSYCHIATRIC: Appropriate affect, denies SI/HI, without agitation or anxiety SKIN: No ulceration or induration present. - Patient Status Disposition: Home, Self-Care Condition: Good Functional capacity at discharge: independent ambulation Overall status at discharge: patient is back to baseline - Discharge Instructions Instructions: Levofloxacin (By mouth), Ipratropium/Albuterol (By breathing) Follow Up With: Poornima Lagos CNP [Partnered Physician] - 07/20/18 2:00 pm - Diet and Activity Activity: increase activity as tolerated Diet: advance to your usual diet
== END 2018-07-14 15:22 | disposition home or self-care (01) | DRG 193 ==
LOC: 3BNU 17:51 → EMEROOARM 17:51 → 3BNU 21:25
PROVIDERS: ADMIT Internal Medicine; ATTEND Internal Medicine